=== PATIENT | male | born 1945 | race Asian ===

== ENCOUNTER 2018-06-26 08:17 | Inpatient (IN) | payer OTHER, MEDICARE ==
[~2018-06-26] VITALS: Ht 162.6 cm; Wt 59.0 kg
[~2018-06-26 08:17] MED LIST: GABA-331 PO; GLIP10TA11 PO; LISI-209 PO; MELO15TA13 PO; METF-379 PO; NORCO5 PO; PIOG45TA PO; SIMV80TA2 PO
[2018-06-26 08:25] VITALS: BP_SYST 146
--- NOTE | 2018-06-26 08:30 | NUR ---
Placed in room 8. Placed on quality assurance monitor body, blood pressure machine and pulse oximeter. To gown for exam. Side rails up. Report given to Morelia GANN.
--- NOTE | 2018-06-26 08:31 | NUR ---
ER Dr. Summers at bedside examining patient.
--- NOTE | 2018-06-26 08:35 | NUR ---
PATIENT CAME IN COMPLAINING OF LIGHT HEADEDNESS FOR ONE WEEK BUT IS WORST TODAY. PATIENT STATES HE DOESNT SEE SPINNING. PATIENT ALERT AND ORIENTED X4. PATIENT NOT COMPLAINING OF PAIN, SOB, NAUSEA, OR VOMITING.
--- NOTE | 2018-06-26 08:44 | NUR ---
PATIENT LEAVING TO RADIOLOGY VIA WHEELCHAIR IN STABLE CONDITION.
--- NOTE | 2018-06-26 09:00 | NUR ---
PATIENT BACK IN BED IN STABLE CONDITION.
[2018-06-26 09:38] LABS: BASOPHILS % (AUTO) 0.4 % (0.0-2.0); EOSINOPHILS % (AUTO) 0.3 % (0.0-4.0); HEMATOCRIT 37.5 % (36-54); HEMOGLOBIN 12.5 g/dL (14.0-18.0); LYMPHOCYTES # (AUTO) 1.2 K/uL (1.0-5.5); LYMPHOCYTES % (AUTO) 23.2 % (20.5-51.5); MEAN CORPUSCULAR HEMOGLOBIN 31 pg (27-31); MEAN CORPUSCULAR HGB CONC 33 % (32-36); MEAN CORPUSCULAR VOLUME 93 fL (79.0-98.0); MONOCYTES # (AUTO) 0.4 K/uL (0.0-1.0); MONOCYTES % (AUTO) 7.7 % (1.7-9.3); NEUTROPHILS # (AUTO) 3.4 K/uL (1.8-7.7); NEUTROPHILS % (AUTO) 68.4 % (40.0-70.0); PLATELET COUNT (AUTO) 222 K/uL (130-430); RED BLOOD CELL COUNT(AUTO) 4.03 MIL/uL (4.2-6.2); RED CELL DISTRIBUTION WIDTH 14.3 % (9.0-15.0)
[2018-06-26 09:40] LABS: PROTHROMBIN TIME 10.2 SECS (9.5-12.5)
[2018-06-26 09:44] LABS: ANION GAP 7 (5-15); CHLORIDE 100 mmol/L (98-107); CREATININE 0.86 mg/dL (0.55-1.30); GLUCOSE 256 mg/dL (70-99); POTASSIUM 4.5 mmol/L (3.5-5.1); SODIUM SERUM 134 mmol/L (136-145); UREA NITROGEN, BLOOD 16 mg/dL (8-21)
[2018-06-26 09:50] LABS: ALANINE AMINOTRANSFERASE 29 U/L (12-78); ALBUMIN 3.2 g/dL (3.4-4.8); ASPARTATE AMINOTRANSFERASE 19 U/L (10-37); CALCIUM 8.8 mg/dL (8.4-11.0); TOTAL BILIRUBIN 0.2 mg/dL (0.0-1.0)
[2018-06-26] MEDS ORDERED: ASPIRIN 325 MG TABLET (ECOTRIN) PO ONE (10:00)
[2018-06-26] MEDS ORDERED: SITA100T11 PO (10:10)
[2018-06-26] MEDS ORDERED: LIP20 PO (10:10)
--- NOTE | 2018-06-26 10:29 | NUR ---
Transfer to TELE via ACLS protocol. Licensed nurse present. IV present no signs or symptoms of infiltration. Patient will be admitted to care of ERLINDA. Admitted to TELE unit. Will go to room 101B. Belongings list completed. Summary report printed. Report will be given at bedside.
--- NOTE | 2018-06-26 10:40 | NUR ---
ADMISSION NOTE Received patient from ER via [facility], received report from Maegan GANN. Patient admitted with diagnosis of dizziness. Patient oriented to hospital routine, call light, toileting and safety-patient verbalized understanding.
[2018-06-26 10:51] VITALS: BP_SYST 154
--- NOTE | 2018-06-26 11:00 | NUR ---
Opening Note Patient arrived from the ER with c/o dizziness and feeling light headed for one week. Otherwise patient does not have any other c/o. IV is on the LAC 20g, SL. Call light is within reach and bed is in the lowest position. Will continue to monitor.
[2018-06-26 11:12] VITALS: BP_SYST 154
--- NOTE | 2018-06-26 12:45 | NUR ---
Rounds Patient is currently resting in bed. Call light is within reach.
--- NOTE | 2018-06-26 14:25 | NUR ---
Rounds patient is currently sleeping in bed. Call light is within reach.
--- NOTE | 2018-06-26 14:48 | NUR ---
AMA: Patient does not wish to proceed with medical care or wants to wait for Dr. Green. Patient given information related to possible complications, up to and including , which could occur as a result of leaving hospital at this time. Patient verbalizes understanding of risks involved leaving against medical advice. Patient has signed AMA form.
--- NOTE | 2018-06-26 14:55 | NUR ---
MD Called Called Dr. Obrien to inform MD that the patient left AMA.
== END 2018-06-26 14:48 | disposition left against medical advice (07) | DRG 149 ==
LOC: SED 08:17 → STU 10:14
PROVIDERS: ADMIT Internal Medicine Hospice and Palliative Medicine; ATTEND Internal Medicine Hospice and Palliative Medicine
DX: R42 Dizziness and giddiness (principal); E11.9 Type 2 diabetes mellitus without complications; Z53.21 Procedure and treatment not carried out due to patient leaving prior to being seen by health care provider; I10 Essential (primary) hypertension; Z79.84 Long term (current) use of oral hypoglycemic drugs; Z79.899 Other long term (current) drug therapy; Z86.73 Personal history of transient ischemic attack (TIA), and cerebral infarction without residual deficits
CPT/HCPCS: 36415; 70450-TC; 71045; 80053; 84484; 85025; 85610-TC; 85730-TC; 93005; 99285; G0378

== ENCOUNTER 2019-07-20 07:16 | Emergency (ER) | payer OTHER, MEDICARE ==
[~2019-07-20] VITALS: Ht 162.6 cm; Wt 60.8 kg
[~2019-07-20 07:16] MED LIST changes: -GABA-331 PO; +LIP20 PO; -MELO15TA13 PO; -NORCO5 PO; -SIMV80TA2 PO; +SITA100T11 PO
--- NOTE | 2019-07-20 07:40 | NUR ---
MD DAVIS AT BEDSIDE ASSESSING PT.
[2019-07-20 07:44] VITALS: BP_SYST 125
[2019-07-20] MEDS ORDERED: NACL 0.9% 1,000 ML IV ONE (07:51)
[2019-07-20] MEDS ORDERED: KETOROLAC TROMETHAMINE 30 MG VIAL IVP ONE (08:00)
--- NOTE | 2019-07-20 08:12 | NUR ---
RADIOLOGY AT BEDSIDE TAKING XRAYS.
--- NOTE | 2019-07-20 08:12 | NUR ---
PT IS ALERT ORIENTED FROM HOME . REPORT OF MECHANICAL FALL 3 DAYS AGO.
--- NOTE | 2019-07-20 08:37 | NUR ---
IV ACCESS TO THE LEFT AC IN ONE ATTEMPT. PAIN MED GIVEN AND IV FLUIDS INFUSING.
[2019-07-20 08:45] LABS: BASOPHILS % (AUTO) 0.3 % (0.0-2.0); EOSINOPHILS % (AUTO) 0.5 % (0.0-4.0); HEMATOCRIT 38.9 % (36-54); HEMOGLOBIN 12.9 g/dL (14.0-18.0); LYMPHOCYTES # (AUTO) 1.6 K/uL (1.0-5.5); LYMPHOCYTES % (AUTO) 31.2 % (20.5-51.5); MEAN CORPUSCULAR HEMOGLOBIN 31 pg (27-31); MEAN CORPUSCULAR HGB CONC 33 % (32-36); MEAN CORPUSCULAR VOLUME 93 fL (79.0-98.0); MONOCYTES # (AUTO) 0.4 K/uL (0.0-1.0); MONOCYTES % (AUTO) 8.1 % (1.7-9.3); NEUTROPHILS # (AUTO) 3.1 K/uL (1.8-7.7); NEUTROPHILS % (AUTO) 59.9 % (40.0-70.0); PLATELET COUNT (AUTO) 198 K/uL (130-430); RED BLOOD CELL COUNT(AUTO) 4.18 MIL/uL (4.2-6.2); RED CELL DISTRIBUTION WIDTH 14.1 % (9.0-15.0); WHITE BLOOD COUNT (AUTO) 5.3 K/uL (4.8-10.8)
[2019-07-20 08:59] LABS: ANION GAP 7 (5-15); CALCIUM 8.8 mg/dL (8.4-11.0); CHLORIDE 99 mmol/L (98-107); CREATININE 0.99 mg/dL (0.55-1.30); GLUCOSE 287 mg/dL (70-99); POTASSIUM 4.2 mmol/L (3.5-5.1); SODIUM SERUM 133 mmol/L (136-145); UREA NITROGEN, BLOOD 19 mg/dL (8-21)
[2019-07-20 09:14] LABS: ALANINE AMINOTRANSFERASE 28 U/L (12-78); ALBUMIN 3.3 g/dL (3.4-4.8); ASPARTATE AMINOTRANSFERASE 21 U/L (10-37); TOTAL BILIRUBIN 0.4 mg/dL (0.0-1.0)
[2019-07-20 10:02] VITALS: BP_SYST 127
--- NOTE | 2019-07-20 10:06 | NUR ---
Patient given written and verbal discharge instructions and verbalizes understanding. ER MD discussed with patient the results and treatment provided. Patient in stable condition. ID arm band removed. IV catheter removed intact and dressing applied, no active bleeding. Rx of NAPROSYN given. Patient educated on pain management and to follow up with PMD. Pain Scale . Opportunity for questions provided and answered. Medication side effect fact sheet provided.
== END 2019-07-20 10:02 | disposition home or self-care (01) ==
LOC: SED 07:16
DX: S20.211A Contusion of right front wall of thorax, initial encounter (principal); I10 Essential (primary) hypertension; E11.9 Type 2 diabetes mellitus without complications; Z86.73 Personal history of transient ischemic attack (TIA), and cerebral infarction without residual deficits; Z79.899 Other long term (current) drug therapy; W18.39XA Other fall on same level, initial encounter; Y93.89 Activity, other specified; Y92.89 Other specified places as the place of occurrence of the external cause; Y99.8 Other external cause status
CPT/HCPCS: 36415; 71045; 71100; 73502; 80053; 85025; 96374; 99284; J1885; J7030

== ENCOUNTER 2022-04-01 09:48 | Inpatient (IN) | payer OTHER, MEDICARE ==
[~2022-04-01] VITALS: Ht 162.6 cm; Wt 59.0 kg
[2022-04-01 10:49] LABS: BASOPHILS % (AUTO) 0.1 % (0.0-2.0); EOSINOPHILS % (AUTO) 0.3 % (0.0-4.0); HEMATOCRIT 42.1 % (36-54); HEMOGLOBIN 13.6 g/dL (14.0-18.0); LYMPHOCYTES # (AUTO) 0.9 K/uL (1.0-5.5); LYMPHOCYTES % (AUTO) 14.5 % (20.5-51.5); MEAN CORPUSCULAR HEMOGLOBIN 29 pg (27-31); MEAN CORPUSCULAR HGB CONC 32 % (32-36); MEAN CORPUSCULAR VOLUME 89 fL (79.0-98.0); MONOCYTES # (AUTO) 0.5 K/uL (0.0-1.0); MONOCYTES % (AUTO) 8.3 % (1.7-9.3); NEUTROPHILS # (AUTO) 4.6 K/uL (1.8-7.7); NEUTROPHILS % (AUTO) 76.8 % (40.0-70.0); PLATELET COUNT (AUTO) 249 K/uL (130-430); RED BLOOD CELL COUNT(AUTO) 4.72 MIL/uL (4.2-6.2); WHITE BLOOD COUNT (AUTO) 5.9 K/uL (4.8-10.8)
[2022-04-01 11:08] VITALS: BP_SYST 126
[2022-04-01 11:08] LABS: ANION GAP 17 (5-15); CALCIUM 10.2 mg/dL (8.4-11.0); CHLORIDE 102 mmol/L (98-107); CREATININE 1.91 mg/dL (0.55-1.30); UREA NITROGEN, BLOOD 46 mg/dL (8-21)
[2022-04-01 11:09] LABS: ALANINE AMINOTRANSFERASE 70 U/L (12-78); ALBUMIN 3.5 g/dL (3.4-4.8); ASPARTATE AMINOTRANSFERASE 47 U/L (10-37); TOTAL BILIRUBIN 0.6 mg/dL (0.0-1.0)
[2022-04-01 11:13] LABS: GLUCOSE 553 mg/dL (70-99)
[2022-04-01] MEDS ORDERED: NACL 0.9% 1,000 ML IV ONE ×2 (11:15→11:30)
[2022-04-01] MEDS ORDERED: INSULIN REGULAR, HUMAN 100 UNITS/ML, 3 ML VIAL IV ONE (11:15)
[2022-04-01] MEDS ORDERED: DONE5TAB33 PO (11:27)
[2022-04-01] MEDS ORDERED: OMEP40CA20 PO (11:27)
[2022-04-01] MEDS ORDERED: GLIP10TA21 PO (11:27)
[2022-04-01] MEDS ORDERED: ATOR20TA64 PO (11:27)
[2022-04-01] MEDS ORDERED: PIOG45TA63 PO (11:27)
[2022-04-01] MEDS ORDERED: PIPERACILLIN/TAZO 3.375 GM in NS 50 ML IV ONE (11:30)
[2022-04-01] MEDS ORDERED: PIPERACILLIN/TAZOBACTAM 3.375 GM/VIAL (ZOSYN) IV ONE (12:18)
[2022-04-01] MEDS ORDERED: NALOXONE HCL 0.4 MG/ML AMP (NARCAN) IVP PRN ×2 (14:30)
[2022-04-01] MEDS ORDERED: HYDROcodone/ACETAMIN 5-325 MG TAB (NORCO/ VICODIN) PO PRN (14:30)
[2022-04-01] MEDS ORDERED: HYDROcodone/ACETAMIN 10-325 MG TAB PO PRN (14:30)
[2022-04-01] MEDS ORDERED: ONDANSETRON HCL 4 MG/2 ML VIAL IVP PRN (14:30)
[2022-04-01] MEDS ORDERED: ACETAMINOPHEN 325 MG TABLET PO PRN (14:30)
[2022-04-01] MEDS ORDERED: LORazepam 2 MG/ML VIAL IVP PRN (14:30)
[2022-04-01 14:53] VITALS: BP_SYST 105
[2022-04-01] MEDS: D5/0.45 NS 1,000 ML IV SCH (15:42)
[2022-04-01] MEDS: PIPERACILLIN/TAZO 2.25G/DEX-IS 50 ML IV SCH (18:00)
[2022-04-01] MEDS: INSULIN REGULAR, HUMAN 100 UNITS/ML, 3 ML VIAL (humuLIN R) SUBCUT PRN ×2 (18:02→21:25)
[2022-04-01] MEDS ORDERED: LOPERAMIDE HCL 2 MG CAPSULE PO PRN (18:45)
[2022-04-01 21:09] VITALS: BP_SYST 146
[2022-04-01 21:10] VITALS: BP_SYST 146
[2022-04-01] MEDS: glipiZIDE XL 5 MG TAB ( GLUCOTROL XL) PO SCH (21:22)
[2022-04-01] MEDS: NORMAL SALINE 5 ML DISP.SYRIN IVF SCH (21:22)
[2022-04-01] MEDS ORDERED: NORMAL SALINE 5 ML DISP.SYRIN IVF SCH (22:00)
[2022-04-02] MEDS: PIPERACILLIN/TAZO 2.25G/DEX-IS 50 ML IV SCH ×4 (00:15→18:41)
[2022-04-02] MEDS: D5/0.45 NS 1,000 ML IV SCH ×2 (00:15→09:51)
[2022-04-02 00:56] VITALS: BP_SYST 144
[2022-04-02] MEDS: NORMAL SALINE 5 ML DISP.SYRIN IVF SCH ×3 (06:27→22:00)
[2022-04-02] MEDS: INSULIN REGULAR, HUMAN 100 UNITS/ML, 3 ML VIAL (humuLIN R) SUBCUT PRN ×3 (06:31→21:58)
[2022-04-02 07:09] LABS: BASOPHILS % (AUTO) 0.2 % (0.0-2.0); EOSINOPHILS % (AUTO) 0.1 % (0.0-4.0); HEMATOCRIT 38.8 % (36-54); HEMOGLOBIN 12.5 g/dL (14.0-18.0); LYMPHOCYTES # (AUTO) 1.1 K/uL (1.0-5.5); LYMPHOCYTES % (AUTO) 21.6 % (20.5-51.5); MEAN CORPUSCULAR HEMOGLOBIN 29 pg (27-31); MEAN CORPUSCULAR HGB CONC 32 % (32-36); MEAN CORPUSCULAR VOLUME 89 fL (79.0-98.0); MONOCYTES # (AUTO) 0.6 K/uL (0.0-1.0); NEUTROPHILS # (AUTO) 3.5 K/uL (1.8-7.7); NEUTROPHILS % (AUTO) 66.1 % (40.0-70.0); PLATELET COUNT (AUTO) 201 K/uL (130-430); RED BLOOD CELL COUNT(AUTO) 4.38 MIL/uL (4.2-6.2); WHITE BLOOD COUNT (AUTO) 5.2 K/uL (4.8-10.8)
[2022-04-02 07:53] LABS: ALANINE AMINOTRANSFERASE 56 U/L (12-78); ALBUMIN 2.8 g/dL (3.4-4.8); ANION GAP 11 (5-15); ASPARTATE AMINOTRANSFERASE 40 U/L (10-37); CALCIUM 8.7 mg/dL (8.4-11.0); CHLORIDE 110 mmol/L (98-107); CREATININE 0.99 mg/dL (0.55-1.30); GLUCOSE 256 mg/dL (70-99); PHOSPHORUS 2.8 mg/dL (2.7-4.5); TOTAL BILIRUBIN 0.4 mg/dL (0.0-1.0); UREA NITROGEN, BLOOD 44 mg/dL (8-21)
[2022-04-02 08:00] VITALS: BP_SYST 156
[2022-04-02] MEDS ORDERED: OMEPRAZOLE Non-Formulary 20 MG CAPSULE.DR PO SCH (09:00)
[2022-04-02] MEDS: DONEPEZIL HCL 5 MG TABLET (ARICEPT) PO SCH (09:50)
[2022-04-02] MEDS: glipiZIDE XL 5 MG TAB ( GLUCOTROL XL) PO SCH ×2 (09:50→21:54)
[2022-04-02] MEDS: ATORVASTATIN 20 MG TABLET PO SCH (09:50)
[2022-04-02] MEDS: PANTOPRAZOLE SODIUM 40 MG TAB PO SCH (09:50)
[2022-04-02] MEDS: PIOGLITAZONE HCL 15 MG TABLET PO SCH (09:51)
[2022-04-02 12:20] VITALS: BP_SYST 159
[2022-04-02] MEDS ORDERED: CARVEDILOL 3.125 MG TABLET (COREG) PO ONE (14:15)
[2022-04-02] MEDS: NACL 0.9% 1,000 ML IV SCH (14:37)
[2022-04-02 16:20] VITALS: BP_SYST 155
[2022-04-02 20:20] VITALS: BP_SYST 136
[2022-04-02] MEDS: CARVEDILOL 3.125 MG TABLET (COREG) PO SCH (21:55)
[2022-04-03 00:52] VITALS: BP_SYST 131
[2022-04-03] MEDS: NACL 0.9% 1,000 ML IV SCH ×2 (01:00→11:00)
[2022-04-03] MEDS: NORMAL SALINE 5 ML DISP.SYRIN IVF SCH (06:24)
[2022-04-03] MEDS: PIPERACILLIN/TAZO 2.25G/DEX-IS 50 ML IV SCH ×3 (06:24→12:00)
[2022-04-03] MEDS: INSULIN REGULAR, HUMAN 100 UNITS/ML, 3 ML VIAL (humuLIN R) SUBCUT PRN ×2 (06:31→11:49)
[2022-04-03 06:56] LABS: BASOPHILS % (AUTO) 0.3 % (0.0-2.0); EOSINOPHILS % (AUTO) 0.2 % (0.0-4.0); HEMOGLOBIN 11.9 g/dL (14.0-18.0); LYMPHOCYTES # (AUTO) 1.4 K/uL (1.0-5.5); MEAN CORPUSCULAR HEMOGLOBIN 29 pg (27-31); MEAN CORPUSCULAR HGB CONC 33 % (32-36); MEAN CORPUSCULAR VOLUME 87 fL (79.0-98.0); MONOCYTES # (AUTO) 0.5 K/uL (0.0-1.0); MONOCYTES % (AUTO) 9.7 % (1.7-9.3); NEUTROPHILS # (AUTO) 3.1 K/uL (1.8-7.7); NEUTROPHILS % (AUTO) 61.8 % (40.0-70.0); PLATELET COUNT (AUTO) 192 K/uL (130-430); RED BLOOD CELL COUNT(AUTO) 4.13 MIL/uL (4.2-6.2); RED CELL DISTRIBUTION WIDTH 14.8 % (9.0-15.0); WHITE BLOOD COUNT (AUTO) 5.1 K/uL (4.8-10.8)
[2022-04-03 07:30] LABS: ANION GAP 10 (5-15); C-REACTIVE PROTEIN QUANT 3.6 mg/dL (0-0.5); CALCIUM 8.6 mg/dL (8.4-11.0); CHLORIDE 110 mmol/L (98-107); CREATININE 0.74 mg/dL (0.55-1.30); GLUCOSE 219 mg/dL (70-99); PHOSPHORUS 2.7 mg/dL (2.7-4.5); UREA NITROGEN, BLOOD 26 mg/dL (8-21)
[2022-04-03 08:00] VITALS: BP_SYST 142
[2022-04-03 08:24] LABS: ERYTHROCYTE SEDIMENTATION RATE 56 MM/HR (0-15)
[2022-04-03] MEDS ORDERED: INSULIN GLARGINE 100 UNITS/ML, 10 ML VIAL SUBCUT SCH (09:00)
[2022-04-03] MEDS: glipiZIDE XL 5 MG TAB ( GLUCOTROL XL) PO SCH (09:06)
[2022-04-03] MEDS: DONEPEZIL HCL 5 MG TABLET (ARICEPT) PO SCH (09:06)
[2022-04-03] MEDS: PIOGLITAZONE HCL 15 MG TABLET PO SCH (09:06)
[2022-04-03] MEDS: PANTOPRAZOLE SODIUM 40 MG TAB PO SCH (09:06)
[2022-04-03] MEDS: ATORVASTATIN 20 MG TABLET PO SCH (09:07)
[2022-04-03] MEDS: CARVEDILOL 3.125 MG TABLET (COREG) PO SCH (09:07)
[2022-04-03 12:00] VITALS: BP_SYST 146
[2022-04-03] MEDS ORDERED: COR3.125 PO (12:30)
[2022-04-03] MEDS ORDERED: INSU100I70 SQ (12:34)
[2022-04-03] MEDS ORDERED: METR-154 PO (12:34)
[2022-04-03] MEDS ORDERED: LEVO-62 PO (12:34)
[2022-04-03 14:55] VITALS: BP_SYST 146
== END 2022-04-03 15:30 | disposition home health service (06) | DRG 391 ==
LOC: SED 09:48 → SMU 11:21
PROVIDERS: ADMIT Preventive Medicine Preventive Medicine/Occupational Environmental Medicine; ATTEND Preventive Medicine Preventive Medicine/Occupational Environmental Medicine
DX: K52.9 Noninfective gastroenteritis and colitis, unspecified (principal); N17.0 Acute kidney failure with tubular necrosis; E87.20 Acidosis, unspecified; E86.0 Dehydration; I10 Essential (primary) hypertension; E78.5 Hyperlipidemia, unspecified; K21.9 Gastro-esophageal reflux disease without esophagitis; F03.90 Unspecified dementia, unspecified severity, without behavioral disturbance, psychotic disturbance, mood disturbance, and anxiety; R74.01 Elevation of levels of liver transaminase levels; E11.65 Type 2 diabetes mellitus with hyperglycemia; R53.81 Other malaise; Z20.822 Contact with and (suspected) exposure to COVID-19; Z86.73 Personal history of transient ischemic attack (TIA), and cerebral infarction without residual deficits; Z79.84 Long term (current) use of oral hypoglycemic drugs; Z79.899 Other long term (current) drug therapy
CPT/HCPCS: 36415; 71045; 76376; 80048; 80053; 82272; 83605; 83735; 84100; 85025; 85651-TC; 86140; 87040; 87045-TC; 87046; 87177; 87230-TC; 89055; 93005; 96361; 96365; 96375; 97116-GP; 99285; J1815; J2543

== ENCOUNTER 2023-05-27 10:15 | Emergency (ER) | payer OTHER, MEDICARE ==
[~2023-05-27] VITALS: Ht 160 cm; Wt 59.0 kg
[~2023-05-27 10:15] MED LIST changes: +ATOR20TA64 PO; +COR3.125 PO; +DONE5TAB33 PO; -GLIP10TA11 PO; +GLIP10TA21 PO; +INSU100I70 SQ; +LEVO-62 PO; -LIP20 PO; -LISI-209 PO; -METF-379 PO; +METR-154 PO; +OMEP40CA20 PO; -PIOG45TA PO; +PIOG45TA63 PO
[2023-05-27 10:28] VITALS: BP_SYST 172; PULSE 95; RESP 18; TEMP 97.5; O2SAT 99
[2023-05-27] MEDS ORDERED: ONDANSETRON HCL 4 MG/2 ML VIAL ONE (10:45)
[2023-05-27] MEDS: ONDANSETRON HCL 4 MG/2 ML VIAL IVP ONE (10:53)
[2023-05-27] MEDS: MORPHINE 4 MG INJ. 4 MG/ML VIAL IM ONE ×2 (10:54→11:43)
[2023-05-27] MEDS ORDERED: IBUP-1969 PO (11:38)
[2023-05-27] MEDS ORDERED: HYDR-3917 PO (11:38)
[2023-05-27 12:16] VITALS: BP_SYST 172; PULSE 95; RESP 18; TEMP 97.5; O2SAT 99
== END 2023-05-27 12:15 | disposition home or self-care (01) ==
LOC: SED 10:15
DX: S42.92XA Fracture of left shoulder girdle, part unspecified, initial encounter for closed fracture (principal); E11.9 Type 2 diabetes mellitus without complications; I10 Essential (primary) hypertension; Z79.899 Other long term (current) drug therapy; W14.XXXA Fall from tree, initial encounter; Y93.89 Activity, other specified; Y92.89 Other specified places as the place of occurrence of the external cause; Y99.8 Other external cause status
CPT/HCPCS: 99284; 96374; 29105; 73030; 96372; J2405; J2270

== ENCOUNTER 2023-09-15 13:46 | Emergency (ER) | payer OTHER, MEDICARE ==
[~2023-09-15] VITALS: Ht 167.6 cm; Wt 63.5 kg
[~2023-09-15 13:46] MED LIST changes: +HYDR-3917 PO; +IBUP-1969 PO
[2023-09-15 13:53] VITALS: BP_SYST 99; PULSE 105; RESP 18; TEMP 99.6; O2SAT 95
[2023-09-15 15:12] LABS: BLOOD, URINE NEGATIVE (NEGATIVE); CLARITY/URINE CLEAR (CLEAR); COLOR,URINE YELLOW (YELLOW); GLUCOSE,URINE TRACE (NEGATIVE); KETONES,URINE TRACE (NEGATIVE); LEUKOCYTE ESTERASE ,URINE NEGATIVE (NEGATIVE); NITRITE, URINE NEGATIVE (NEGATIVE); PH,URINE 5.5 (5.0-8.0); PROTEIN URINE 1+ (NEGATIVE)
[2023-09-15 15:15] LABS: ALANINE AMINOTRANSFERASE 21 U/L (12-78); ALBUMIN 3.3 g/dL (3.4-4.8); ANION GAP 12 (5-15); ASPARTATE AMINOTRANSFERASE 29 U/L (10-37); BILIRUBIN,DIRECT 0.1 mg/dL (0.0-0.3); CALCIUM 8.8 mg/dL (8.4-11.0); CARBON DIOXIDE 19 mmol/L (23-29); CHLORIDE 97 mmol/L (98-107); CREATININE 1.03 mg/dL (0.55-1.30); GLUCOSE 198 mg/dL (74-106); POTASSIUM 4.4 mmol/L (3.5-5.1); SODIUM SERUM 128 mmol/L (136-145); TOTAL BILIRUBIN 0.4 mg/dL (0.0-1.0); TOTAL PROTEIN, SERUM 7.2 g/dL (6.4-8.3); UREA NITROGEN, BLOOD 23 mg/dL (8-21)
[2023-09-15 15:24] LABS: BILIRUBIN,URINE 1+ (NEGATIVE)
[2023-09-15 15:25] LABS: BACTERIA,URINE RARE /HPF (None Seen); MUCUS,URINE None Seen /LPF (None Seen); RBC,URINE NONE SEEN /HPF (0-3); WBC,URINE 0-3 /HPF (0-3)
[2023-09-15 15:46] LABS: BASOPHILS % (AUTO) 0.4 % (0.0-2.0); HEMATOCRIT 32.6 % (36-54); HEMOGLOBIN 11.1 g/dL (14.0-18.0); LYMPHOCYTES # (AUTO) 1.6 K/uL (1.0-5.5); MEAN CORPUSCULAR HEMOGLOBIN 31 pg (27-31); MEAN CORPUSCULAR HGB CONC 34 % (32-36); MEAN CORPUSCULAR VOLUME 90 fL (79.0-98.0); MONOCYTES # (AUTO) 0.8 K/uL (0.0-1.0); MONOCYTES % (AUTO) 12.3 % (1.7-9.3); NEUTROPHILS # (AUTO) 3.8 K/uL (1.8-7.7); NEUTROPHILS % (AUTO) 61.3 % (40.0-70.0); PLATELET COUNT (AUTO) 198 K/uL (130-430); RED BLOOD CELL COUNT(AUTO) 3.63 MIL/uL (4.2-6.2); RED CELL DISTRIBUTION WIDTH 14.8 % (9.0-15.0); WHITE BLOOD COUNT (AUTO) 6.1 K/uL (4.8-10.8)
[2023-09-15] MEDS ORDERED: CEFU250T85 PO (16:00)
[2023-09-15 16:22] VITALS: BP_SYST 99; PULSE 96; RESP 18; TEMP 97.4; O2SAT 100
== END 2023-09-15 16:22 | disposition home or self-care (01) ==
LOC: SED 13:46
DX: J40 Bronchitis, not specified as acute or chronic (principal); E87.1 Hypo-osmolality and hyponatremia; R53.1 Weakness; E11.9 Type 2 diabetes mellitus without complications; I10 Essential (primary) hypertension; Z79.899 Other long term (current) drug therapy; Z79.2 Long term (current) use of antibiotics; Z79.4 Long term (current) use of insulin
CPT/HCPCS: 36415; 80048; 80076; 81000; 81001; 81015; 85025; 99283